=== PATIENT | female | born 1955 | race Caucasian/White ===

== ENCOUNTER 2022-09-01 07:45 | Outpatient (CLI) | payer MEDICARE, SELFPAY ==
[2022-09-01 08:24] LABS: Alanine Aminotransferase 84 U/L (6-35); Albumin Level 4.8 g/dL (3.5-5.1); Alkaline Phosphatase 50 U/L (38-126); Anion Gap 5 mmol/L (8-16); Aspartate Amino Transferase 71 U/L (14-36); Bilirubin,Total 0.5 mg/dL (0.2-1.3); Blood Urea Nitrogen 19 mg/dL (7-17); Calcium 9.6 mg/dL (8.4-10.2); Carbon Dioxide 30 mmol/L (22-30); Chloride 104 mmol/L (98-107); Cholesterol 181 mg/dL (0-200); Estimated Glomerular Filt Rate 55; Glucose 100 mg/dL (65-110); HDL Direct 81 mg/dL; Potassium 4.7 mmol/L (3.4-5.0); Sodium 139 mmol/L (137-145); Triglycerides 84 mg/dL (<150)
[2022-09-01 08:35] LABS: LDL Cholesterol Direct 84 mg/dL
== END 2022-09-01 07:46 | disposition home or self-care (01) ==
PROVIDERS: PCP Nurse Practitioner; Visit Provider Nurse Practitioner
DX: E78.5 Hyperlipidemia, unspecified (principal); I10 Essential (primary) hypertension; Z79.899 Other long term (current) drug therapy
CPT/HCPCS: 36415; 80053; 80061

== ENCOUNTER 2022-10-01 07:11 | Outpatient (CLI) | payer MEDICARE, SELFPAY ==
[2022-10-01 07:52] LABS: Alanine Aminotransferase 45 U/L (6-35); Albumin Level 4.5 g/dL (3.5-5.1); Alkaline Phosphatase 48 U/L (38-126); Aspartate Amino Transferase 57 U/L (14-36); Bilirubin,Total 0.5 mg/dL (0.2-1.3)
== END 2022-10-01 07:12 | disposition home or self-care (01) ==
LOC: ANHLAB 07:12
PROVIDERS: PCP Nurse Practitioner; Visit Provider Nurse Practitioner
DX: R79.89 Other specified abnormal findings of blood chemistry (principal)
CPT/HCPCS: 36415; 80076

== ENCOUNTER 2022-11-17 07:20 | Outpatient (CLI) | payer MEDICARE, OTHER, SELFPAY ==
--- NOTE | ~2022-11-17 | US_ITS ---
EXAMINATION: US abdomen limited DATE: 11/17/2022 07:45 INDICATION: Other specified abnormal findings of blood chemistry TECHNIQUE: Multiple grayscale and Doppler ultrasound images of the abdomen were obtained. COMPARISON: None available FINDINGS: The head and body of the pancreas are normal. The pancreatic tail is obscured by bowel gas. The liver is normal with normal echogenicity and echotexture. No surface nodularity. Normal hepatope gogo flow in the main portal vein. The gallbladder is normal with no abnormal wall thickening, pericho lecystic fluid or stones. The normal common bile duct measures 5 mm. There was no sonographic Camacho sign. IMPRESSION: 1. Normal sonographic study of the gallbladder. Reviewed, dictated and finalized at location L.
== END 2022-11-17 07:21 | disposition home or self-care (01) ==
LOC: ANHIMG 07:24
PROVIDERS: PCP Nurse Practitioner; Visit Provider Nurse Practitioner
DX: R79.89 Other specified abnormal findings of blood chemistry (principal)
CPT/HCPCS: 76705

== ENCOUNTER 2022-11-26 10:08 | Outpatient (CLI) | payer MEDICARE, SELFPAY ==
--- NOTE | ~2022-11-26 | MM_ITS ---
EXAMINATION: MM scrn syed implant BI w deisi HISTORY: Screening mammogram TECHNIQUE: Craniocaudal and mediolateral oblique 3-D tomosynthesis images with implant displacement a nd synthetic 2-D images were generated. Craniocaudal and mediolateral oblique views of the breasts wi thout implant displacement were obtained using full field digital mammography. CAD analysis was submi tted and interpreted. COMPARISON: 10/09/2009 bilateral screening mammogram BREAST PARENCHYMAL COMPOSITION: There are scattered areas of fibroglandular density. FINDINGS: Status post bilateral augmentation mammoplasty. There is no evidence of suspicious mass, ca lcification, or architectural distortion to suggest malignancy in either breast. There has been no chan spicious interval change. IMPRESSION: 1. No mammographic evidence of malignancy. 2. Recommend routine screening mammography in one year. BI-RADS Category 1: Negative Reviewed, dictated and finalized at location A.
== END 2022-11-26 10:09 | disposition home or self-care (01) ==
PROVIDERS: PCP Nurse Practitioner; Visit Provider Nurse Practitioner
DX: Z12.31 Encounter for screening mammogram for malignant neoplasm of breast (principal)
CPT/HCPCS: 77063; 77067

== ENCOUNTER 2023-02-22 00:34 | Day surgery (SDC) | payer MEDICARE, SELFPAY ==
[2023-02-08 13:46] VITALS: BMI 20.7
--- NOTE | 2023-02-19 09:26 | SUR.PREOP ---
Patient called regarding upcoming procedure. Message left on patient's voicemail regarding preop instructions, appointment times, and procedure prep.
--- NOTE | 2023-02-20 11:16 | PM.HPGS ---
History of Present Illness History of Present Illness Consent: Risks, benefits, and alternatives have been discussed and questions answered. Patient agrees to proceed with procedure. Chief complaint: neoplasm screening Narrative: Shana Vargas is a 67 year old female referred for colon cancer screening. Her last colonoscopy which was unremarkable was 11 years ago. Review of Systems Review of Systems: All systems reviewed & are unremarkable except as noted in HPI and below PMFSH Past Medical History Medical History COVID-19 Essential (primary) hypertension Hyperlipidemia, unspecified Surgical History Surgical History History of breast augmentation Family History Family History Father Hypertension Social History Social History Smoking packs per day: 1 Smoking cigarettes per day: 20.0 Years smoked: 20 Smoking pack-years: 20.00 Smoking status: Current every day smoker Tobacco type: cigarettes Second hand tobacco smoke exposure: No Smoking end date: 03/15/98 Alcohol intake: current Alcohol use details: Rarely Substance use: current Substance use type: marijuana Other substance usage details: smokes Last use: 02/08/23 Living arrangements: with family Occupation/Education: retired Gender identity (if verbalized by the patient): Female Sexual Orientation (if Verbalized by the Patient): Straight or Heterosexual Meds Home Medications and Allergies Home Medications Medication Instructions Recorded Confirmed Type aspirin 81 mg tablet,delayed 81 mg PO DAILY 03/02/19 02/08/23 History release (Aspir-) rosuvastatin 40 mg tablet (Crestor) 20 mg PO DAILY #90 tabs 08/31/22 02/08/23 Rx lisinopril 10 mg tablet See Rx Instructions .Route 09/01/22 02/08/23 Rx .COMPLEX #90 tabs Allergies Allergy/AdvReac Type Severity Reaction Status Date / Time No Known Allergies Allergy Verified 02/22/23 06:15 Exam Const: General: alert Orientation/consciousness: patient oriented x3 Resp: Auscultation: clear to auscultation bilaterally Cardio: Rhythm: regular rhythm GI: GI Palp: Yes Soft to palpation and No Tenderness to palpation present (GI) Neuro: General: patient oriented x3 Assessment and Plan Assessment and plan (1) Screening for colon cancer: Code(s): Z12.11 - Encounter for screening for malignant neoplasm of colon Status: Acute Assessment and Plan: Colonoscopy with possible biopsy or polypectomy or cautery or injection of substances.
[2023-02-22 06:16] VITALS: BP 140/80; PULSE 91; RESP 18; TEMP 36.1; O2SAT 98
[2023-02-22] MEDS: LACTATED RINGERS 1,000 ML 150 ML IV CONT (06:24)
--- NOTE | 2023-02-22 07:21 | WPDANESEPPF ---
Anes - Initial Pre Proc Eval Procedure: Operation Date: 02/22/23 07:30 Proposed Procedures p Screening Colonoscopy - Roc Joy MD Date/Time: 02/22/23 07:21 Surgeon: Roc Joy MD Pre Op Diagnosis: neoplasm screening Patient Data Age: 67 Gender: F Height: 1.57 m Weight: 52 kg Last Vital Signs Temp 97 F L 02/22/23 06:16 Pulse 91 02/22/23 06:16 Resp 18 02/22/23 06:16 BP 140/80 02/22/23 06:16 Pulse Ox 98 02/22/23 06:16 O2 Del Method Room Air 02/22/23 06:16 Allergies Allergy/AdvReac Type Severity Reaction Status Date / Time No Known Allergies Allergy Verified 02/22/23 06:15 Home Medications Medication Instructions Recorded Confirmed Type aspirin 81 mg tablet,delayed 81 mg PO DAILY 03/02/19 02/08/23 History release (Aspir-) rosuvastatin 40 mg tablet (Crestor) 20 mg PO DAILY #90 tabs 08/31/22 02/08/23 Rx lisinopril 10 mg tablet See Rx Instructions .Route 09/01/22 02/08/23 Rx .COMPLEX #90 tabs Patient hx anesthesia problems: none Family hx anesthesia problems: none Results Review: All pre-operative results and documents have been reviewed as part of the pre-operative evaluation. [facility] Past Medical History Medical History (Updated 10/01/22 @ 07:04 by Ross Helton APRN) COVID-19 Essential (primary) hypertension Hyperlipidemia, unspecified Surgical History Surgical History History of breast augmentation Family History Family History Father Hypertension Social History Social History Smoking packs per day: 1 Smoking cigarettes per day: 20.0 Years smoked: 20 Smoking pack-years: 20.00 Smoking status: Current every day smoker Tobacco type: cigarettes Second hand tobacco smoke exposure: No Smoking end date: 03/15/98 Alcohol intake: current Alcohol use details: Rarely Substance use: current Substance use type: marijuana Other substance usage details: smokes Last use: 02/08/23 Living arrangements: with family Occupation/Education: retired Gender identity (if verbalized by the patient): Female Sexual Orientation (if Verbalized by the Patient): Straight or Heterosexual Anes - Eval Final PreProcedure Day of Procedure 02/22/23 07:21 Patient weight: normal Heart: regular rate and rhythm Lungs: clear to auscultation Neurological: alert and oriented Last oral intake: >/= 8 hours ASA classification: II Emergent: no Anesthetic plan: proceed Anesthesia type and monitoring: general GIVS and standard monitoring Results Review: All pre-operative results and documents have been reviewed as part of the pre-operative evaluation. Informed Consent: The patient's anesthetic plan and its attendant risks and benefits were discussed with the patient/family/POA. Questions were solicited and answers provided to the satisfaction of the patient/family/POA.
[2023-02-22] MEDS: SIMETHICONE ORAL SUSPENSION 20 MG/0.3 ML 30 ML BOTTLE 0.6 ML IRRIGATION (07:37)
[2023-02-22 07:44] VITALS: BP 111/70; PULSE 75; RESP 18; O2SAT 99
[2023-02-22 07:54] VITALS: BP 123/65; PULSE 72; RESP 19; O2SAT 99
[2023-02-22 08:03] VITALS: BP 135/66; PULSE 73; RESP 20; O2SAT 99
== END 2023-02-22 08:31 | disposition home or self-care (01) ==
PROVIDERS: PCP Nurse Practitioner; Visit Provider Internal Medicine Gastroenterology
PROC: 0DJD8ZZ Inspection of Lower Intestinal Tract, Via Natural or Artificial Opening Endoscopic (ICD-10-PCS; CPT 45378; principal; 2023-02-22 07:30)
DX: Z12.11 Encounter for screening for malignant neoplasm of colon (principal); I10 Essential (primary) hypertension; E78.5 Hyperlipidemia, unspecified; F17.210 Nicotine dependence, cigarettes, uncomplicated; F12.90 Cannabis use, unspecified, uncomplicated; Z79.82 Long term (current) use of aspirin
CPT/HCPCS: G0121; J2704; J7120

== ENCOUNTER 2023-09-01 06:45 | Outpatient (CLI) | payer MEDICARE, OTHER, SELFPAY ==
[2023-09-01 07:18] LABS: Basophils Absolute Auto 0.1 K/mm3 (0.0-0.1); Basophils Percent Auto 0.9 % (0.2-1.2); Eosinophils Absolute Auto 0.2 K/mm3 (0-0.3); Eosinophils Percent Auto 3.1 % (0-4.4); Hematocrit 41.1 % (37.0-47.0); Hemoglobin 13.6 g/dL (12.0-15.0); Immature Granulocyte Absolute 0.03 K/mm3 (0.00-0.031); Immature Granulocyte Percent A 0.5 % (0-0.5); Lymphocytes Absolute Auto 1.89 K/mm3 (0.9-3.2); Lymphocytes Percent Auto 29.5 % (18.3-44.2); Mean Corpuscular HGB Conc 33.1 g/dl (32-36); Mean Corpuscular Hemoglobin 29.4 pg (26-34); Mean Corpuscular Volume 88.8 fl (80-100); Mean Platelet Volume 9.9 fl (7.4-10.4); Monocytes Absolute Auto 0.5 K/mm3 (0.1-0.6); Neutrophils Absolute Auto 3.7 K/mm3 (1.3-6.7); Platelet Count Result 235 k/mm3 (150-375); Red Blood Count 4.63 M/mm3 (4.2-5.4); Red Cell Distribution Width 13.4 % (11.5-14.5); White Blood Count 6.4 K/mm3 (4.5-10.0)
[2023-09-01 07:29] LABS: Alanine Aminotransferase 26 U/L (6-35); Alkaline Phosphatase 58 U/L (38-126); Anion Gap 6 mmol/L (4-12); Aspartate Amino Transferase 38 U/L (14-36); Bilirubin,Total 0.9 mg/dL (0.2-1.3); Blood Urea Nitrogen 14 mg/dL (7-17); Calcium 9.5 mg/dL (8.4-10.2); Carbon Dioxide 26 mmol/L (22-30); Chloride 107 mmol/L (98-107); Cholesterol 180 mg/dL (0-200); Estimated Glomerular Filt Rate 49; Glucose 106 mg/dL (65-110); HDL Direct 82 mg/dL; Potassium 4.5 mmol/L (3.4-5.0); Sodium 139 mmol/L (137-145); Triglycerides 92 mg/dL (<150)
[2023-09-01 07:40] LABS: LDL Cholesterol Direct 89 mg/dL
[2023-09-01 07:46] LABS: Iron 106 ug/dL (37-170)
[2023-09-01 07:52] LABS: Hemoglobin A1C 5.3 % (<5.7)
[2023-09-01 07:55] LABS: Percent Iron Saturation 32 % (20-50)
[2023-09-01 08:35] LABS: Hepatitis C Virus Antibody Negative (Negative)
[2023-09-02 06:44] LABS: Hepatitis B Core Ab Total NON-REACTIVE (NON-REACTIVE)
== END 2023-09-01 06:46 | disposition home or self-care (01) ==
PROVIDERS: PCP Family Medicine; Visit Provider Nurse Practitioner Family
DX: E78.5 Hyperlipidemia, unspecified (principal); R79.89 Other specified abnormal findings of blood chemistry; Z11.59 Encounter for screening for other viral diseases; I10 Essential (primary) hypertension; Z13.1 Encounter for screening for diabetes mellitus; Z13.0 Encounter for screening for diseases of the blood and blood-forming organs and certain disorders involving the immune mechanism
CPT/HCPCS: 36415; 80053; 80061; 82728; 83036; 83540; 83550; 85025; 86704; 86803

== ENCOUNTER 2023-11-04 07:21 | Outpatient (CLI) | payer MEDICARE, OTHER, SELFPAY | END 2023-11-04 07:22 | disposition home or self-care (01) | PROVIDERS: PCP Family Medicine; Visit Provider Family Medicine | DX: H90.3 Sensorineural hearing loss, bilateral (principal) | CPT/HCPCS: 92557; 92567 ==

== ENCOUNTER 2024-08-08 06:50 | Outpatient (CLI) | payer MEDICARE, OTHER, SELFPAY ==
[2024-08-08 08:11] LABS: Hematocrit 43.4 % (37.0-47.0); Hemoglobin 13.6 g/dL (12.0-15.0); Mean Corpuscular HGB Conc 31.3 g/dl (32-36); Mean Corpuscular Hemoglobin 28.5 pg (26-34); Mean Platelet Volume 10.8 fl (7.4-10.4); Platelet Count Result 217 k/mm3 (150-375); Red Blood Count 4.77 M/mm3 (4.2-5.4); Red Cell Distribution Width 13.7 % (11.5-14.5); White Blood Count 5.2 K/mm3 (4.5-10.0)
[2024-08-08 09:20] LABS: Alanine Aminotransferase 47 U/L (6-35); Albumin Level 4.6 g/dL (3.5-5.1); Alkaline Phosphatase 64 U/L (38-126); Anion Gap 5 mmol/L (4-12); Aspartate Amino Transferase 58 U/L (14-36); Bilirubin,Total 0.5 mg/dL (0.2-1.3); Blood Urea Nitrogen 19 mg/dL (7-17); Calcium 9.3 mg/dL (8.4-10.2); Carbon Dioxide 30 mmol/L (22-30); Chloride 104 mmol/L (98-107); Estimated Glomerular Filt Rate 54; Glucose 104 mg/dL (65-110); Potassium 4.6 mmol/L (3.4-5.0); Sodium 139 mmol/L (137-145)
== END 2024-08-08 06:51 | disposition home or self-care (01) ==
PROVIDERS: PCP Family Medicine; Visit Provider Family Medicine
DX: R79.89 Other specified abnormal findings of blood chemistry (principal); I10 Essential (primary) hypertension; E78.5 Hyperlipidemia, unspecified; F41.9 Anxiety disorder, unspecified
CPT/HCPCS: 36415; 80053; 85027

== ENCOUNTER 2024-12-11 10:25 | Outpatient (CLI) | payer MEDICARE, OTHER, SELFPAY ==
--- NOTE | ~2024-12-11 | DEXA_ITS ---
Bone Density Report Name: FLOYD HODGE Age: 69 Sex: Female Ethnicity: White Date of : 1955 Indication: postmenopausal; screening for osteoporosis; height loss; Referring Provider: SHANNA SMITH Study: Bone densitometry was performed. Exam Date: December 11, 2024 Accession number: [id number] Bone Density: Region BMD T-score Z-score Classification AP Spine(L1-L4) 0.845 -1.8 0.3 Osteopenia Femoral Neck (Left) 0.614 -2.1 -0.3 Osteopenia Total Hip (Left) 0.930 -0.1 1.4 Normal Femoral Neck (Right) 0.684 -1.5 0.3 Osteopenia Total Hip (Right) 0.949 0.1 1.6 Normal Total Hip Mean 0.939 0.0 1.5 Normal World Health Organization criteria for BMD impression classify patients as: Normal (T-score at or above -1.0), Osteopenia (T-score between -1.0 and -2.5), or Osteoporosis (T-score at or below -2.5). 10-year Fracture Risk(1): Major Osteoporotic Fracture 11% Hip Fracture 2.4% Reported Risk Factors: [place] (), Neck BMD=0.614, BMI=21.4 (1) FRAX(R) Version 3.08. Fracture probability calculated for an untreated patient. Fracture probability may be lower if the patient has received treatment. Clinical Information Provided by Patient: Patient maximum height was 62.0 Menopause Age: 49 Drinks caffeinated beverages Onset of menses at age 14 Number of children 1 Impression: The patient has low bone mass, based on the Left Femoral Neck T-score. The patient has an estimated ten-year risk of hip fracture of 2.4% and an estimated ten-year risk of major fracture of 11%, based on the WHO FRAX algorithm. Discussion: BONE DENSITY IS LOW AT ONE OR MORE SKELETAL SITES. This patient's lowest T-score is low at one or more skeletal sites. It meets the World Health Organization's (WHO) criteria for ?low bone mass? (T-score between -1.0 and -2.5). The patient's 10-year risk of fracture as calculated by FRAX is less than the threshold where pharmacological therapy is recommended by the National Osteoporosis Foundation (NOF). However, all treatment decisions require clinical judgment and consideration of individual patient factors, including patient preferences, comorbidities, previous drug use, risk factors not captured in the FRAX model (e.g., frailty, falls, vitamin D deficiency, increased bone turnover, interval significant decline in bone density) and possible under or overestimation of fracture risk by FRAX. The patient should follow a healthful lifestyle (good nutrition with adequate calcium and vitamin D, and appropriate weight-bearing exercise). Follow-Up: Consider repeating this study in 2 to 3 years to reassess this patient's status, or sooner if there is some new clinical indication. Reported by: MASON on 12/11/2024 11:05:00 AM. Reviewed, dictated and finalized at location A.
--- OUTSIDE RECORDS SUMMARY | 2024-12-11 11:03 | XMS_ITS | Clinical Summary ---
Author Organization [facility] Address [address] [place] [id number] Care Team Providers Care Housekeeper Child Care Name Role Phone None, Provider MD Primary Care Provider Unavaila ble None, Provider MD Unavailable Unavailable Social History Tobacco Use Types Packs/Day Years Used Date Smoking Tobacco: Never Assessed Comments Unknown Sex and Gender Information Value Date Recorded Sex Assigned at Not on file Legal Sex Female 4:13 PM CDT Gender Identity Not on file Sexual Orientation Not on file Plan of Treatment Health Maintenance Due Date Last Done Comments Colorectal Cancer Screening Colonoscopy (10 Years) 1954 Hepatitis C 1972 DTaP, Tdap and Td Vaccines ( 1 - Tdap) 1973 Mammogram Screening 1994 Pneumococcal Vaccine: 50+ Ye ars (1 of 1 - PCV) 2004 Zoster Vaccines (1 of 2) 2004 Annual Medicare Wellness Visit 2019 Dexa Scan (General) 2019 COVID-19 Vaccine ( - 2023-2 5 season) 2024 RSV Immunization or 60+ Years (1 - 1-dose 75+ series) 2029 Meningococcal B Vaccine Aged Out No l onger eligible based on patient's age to complete this topic Meningococcal Vaccine Aged Out No sarahi hussein eligible based on patient's age to complete this topic RSV Immunizations Under 20 Months Aged Out No longer eligible based on patient's age to complete this topic Insurance MEDICARE Care Teams Housekeeper Child Care Relationship Specialty Start Date End Date None, ProviderMD PCP - General 12/24/18 None, ProviderMD 12/24/18
== END 2024-12-11 10:26 | disposition home or self-care (01) ==
LOC: ANHFOHIMG 10:26
PROVIDERS: PCP Family Medicine; Visit Provider Family Medicine
DX: M85.89 Other specified disorders of bone density and structure, multiple sites (principal); Z78.0 Asymptomatic menopausal state; R79.89 Other specified abnormal findings of blood chemistry; I10 Essential (primary) hypertension; E78.5 Hyperlipidemia, unspecified; F41.9 Anxiety disorder, unspecified
CPT/HCPCS: 77080

== ENCOUNTER 2025-01-03 13:06 | Outpatient (CLI) | payer MEDICARE, OTHER, SELFPAY ==
--- NOTE | ~2025-01-03 | MM_ITS ---
EXAMINATION: MM scrn syed implant BI w edisi INDICATION: Asymptomatic, referred for screening mammogram COMPARISON: 11/26/2022 and 10/09/2009 TECHNIQUE: Digital Breast Tomosynthesis CC, MLO, and implant displaced CC and MLO views of Both breasts were obtained with computer-aided detection to assist in interpretation of the study. FINDINGS: There are scattered areas of fibroglandular density. Bilateral breast Retroglandular Silicone implants in place appears unchanged. No focal dominant mass, architectural distortion, or suspicious microcalcifications are identified. There are no features to suggest malignancy. IMPRESSION: 1. No evidence of malignancy in the breasts. 2. Both breasts Retroglandular Silicone implants appears unchanged. Recommend continued screening mammography BI-RADS 1, NEGATIVE Reviewed, dictated and finalized at location B.
--- OUTSIDE RECORDS SUMMARY | 2025-01-03 16:37 | XMS_ITS | Clinical Summary ---
Author Organization [facility] Address [address] [place] [id number] Care Team Providers Care Burlesque Dancer Name Role Phone None, Provider MD Primary [...] Scan (General) 2019 COVID-19 Vaccine ( - 2024-2 6 season) 2024 Influenza Adult (#1) 2024 RSV Immunization or 60+ Years (1 - 1-dose 75+ series) 2029 Hepatitis A Vaccines Aged Out No long er eligible based on patient's age to complete this topic Meningococcal B Vaccine Aged Out No l onger eligible based on patient's age to complete this topic Meningococcal Vaccine Aged Out No sarahi hussein eligible based on patient's age to complete this topic RSV Immunizations Under 20 Months Aged Out No longer eligible based on patient's age to complete this topic Insurance MEDICARE Care Teams Burlesque Dancer Relationship Specialty Start Date End Date None, ProviderMD PCP - General 12/24/18 None, ProviderMD 12/24/18
== END 2025-01-03 13:07 | disposition home or self-care (01) ==
LOC: CHSIMG 13:07
PROVIDERS: PCP Family Medicine; Visit Provider Family Medicine
DX: Z12.31 Encounter for screening mammogram for malignant neoplasm of breast (principal)
CPT/HCPCS: 77063; 77067